=== PATIENT | female | born 1960 | race Caucasian/White ===

== ENCOUNTER → 2016-09-13 | Outpatient (CLI) | payer OTHER ==
--- NOTE | 2016-09-13 16:41 | WWHP ---
DATE OF SERVICE: 09/13/2016. CHIEF COMPLAINT: Patient is here for her routine gynecologic exam and mammogram. HPI: This is a 56-year-old, G3, P3 with an LMP of 01/24/2016. She states her periods have become very infrequent and she had 3 periods last year. She states she has not been sexually active this past year. She is having hot flashes, but are tolerable. She states certain foods including salty and spicy foods tends to bring on hot flashes. She is otherwise without complaints. PAST MEDICAL HISTORY: Fibromyalgia, elevated cholesterol and gastroesophageal reflux disease. MEDICATIONS: 1. Simvastatin 40 mg daily. 2. Vicodin 7.5 mg 1/2 tablet b.i.d. p.r.n. 3. Flexeril 10 mg p.r.n. 4. Xanax 0.25 mg p.r.n. 5. Omeprazole p.r.n. 6. Mjrh-rfz-ofcifuc supplement called/Flash fighter which she takes for menopausal symptoms daily. ALLERGIES: IBUPROFEN WHICH CAUSED PRURITUS. 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 SOCIAL HISTORY: She admits to smoking 1/2 pack of cigarettes per day, about 7 alcoholic drinks per week. She denies drug use. She has been a since 06/2015. She has been casually seeing somebody recently for dates, but has not been sexually active. She is currently not working outside the home but is considering looking for a job in the future. REVIEW OF SYSTEMS: She has gained about 12 pounds over the last year. She denies respiratory, cardiac, or GI problems. PHYSICAL EXAM: Blood pressure 123/78. Height 4 feet 11 inches, weight 130 pounds. Temperature 97.9, pulse 73. This a well-developed, well-nourished white female who is alert and oriented x3 in no acute distress. HEENT is within normal limits. NECK: Supple without mass or thyromegaly. CHEST AND LUNGS: Clear to auscultation. HEART: Regular rate and rhythm. Breasts are without mass or discharge. Axillary exam is negative for adenopathy. BACK: Negative for CVA tenderness. ABDOMEN: Soft, nontender, without palpable masses. PELVIC EXAM: Normal external genitalia. Cervix and vagina appear normal. There is no significant atrophy and no evidence of prolapse. The uterus is midposition, nongravid size and nontender. There are no palpable adnexal masses or tenderness. Rectovaginal exam is negative for mass or tenderness and is negative for occult blood. EXTREMITIES: Nontender. IMPRESSION: 1. A 56-year-old perimenopausal female with oligomenorrhea and vasomotor symptoms. 2. Normal gynecologic exam. PLAN: 1. Pap smear was deferred, since she had a normal one last year. 2. Self-breast examination was discussed. 3. Mammogram will be done today. 4. Osteoporosis prevention was discussed. 5. I have recommended screening colonoscopy since it has been about 10 years since her last one. She states she will see Dr. John for this. 6. STD prevention was discussed. I have recommended limiting sexual partners and recommended condom use if she is sexually active. 7. She will return in one year.
--- NOTE | 2016-09-14 13:21 | MM ---
Reason for exam: screening (asymptomatic). Last mammogram was performed 1 year and 2 months ago. History: Benign excisional biopsy of the right breast, August 13, 2006. Physical Findings: A clinical breast exam by your physician is recommended on an annual basis and results should be correlated with mammographic findings. MG Screening Mammo w CAD Bilateral CC and MLO view(s) were taken. Prior study comparison: July 27, 2015, bilateral MG screening mammo w CAD. November 26, 2012, CAD bilateral diagnostic mammogram. The breast tissue is extremely dense which could obscure a lesion on mammography. No significant changes when compared with prior studies. ASSESSMENT: Benign, BI-RAD 2 RECOMMENDATION: Routine screening mammogram of both breasts in 1 year.
== END | disposition home or self-care (01) ==
LOC: WWCWWP 09:03
PROVIDERS: ATTEND Obstetrics & Gynecology
DX: Z12.31 Encounter for screening mammogram for malignant neoplasm of breast (principal)

== ENCOUNTER → 2016-11-07 | Outpatient (CLI) | payer OTHER ==
--- NOTE | 2016-11-07 11:27 | CTL ---
EXAMINATION TYPE: CT Low Dose Lung DATE OF EXAM ORDERED: 11/07/2016 HISTORY: Personal history of tobacco use. Lung cancer screening CT DLP: 58.[address] CTDI: 2.1 mGy Automated exposure control for dose reduction was used. SCREENING VISIT: 1 COMPARISON: None TECHNIQUE: Low dose computed tomography scan was performed through the chest at 1 mm thick sections a nd reconstructed images in the coronal plane at [address] DIAGNOSTIC QUALITY: Satisfactory FINDINGS: LUNG NODULES: None. COPD: Severity: None Fibrosis: Severity: None Lymph nodes: No abnormal enlarged nodes Other findings: RIGHT PLEURAL SPACE: Effusion: None Calcification: None Thickening: None Pneumothorax: None LEFT PLEURAL SPACE: Effusion: None Calcification: None Thickening: None Pneumothorax: None HEART: Heart Size: Normal Coronary calcification: Present within the LAD Pericardial effusion: OTHER FINDINGS: Upper abdomen: Unremarkable Bony thorax: Within normal limits. Degenerative disc changes in the visualized spine Supraclavicular region: No evident adenopathy Other: IMPRESSION: Negative screening chest CT for pulmonary nodules. Coronary artery disease as described. FOLLOW UP CT CHEST RECOMMENDATION: [address] LUNG RAD: 1
== END | disposition home or self-care (01) ==
LOC: RADCTMAIN 09:55
PROVIDERS: ATTEND Family Medicine
DX: Z12.2 Encounter for screening for malignant neoplasm of respiratory organs (principal); I25.10 Atherosclerotic heart disease of native coronary artery without angina pectoris; F17.200 Nicotine dependence, unspecified, uncomplicated

== ENCOUNTER → 2017-11-20 | Outpatient (CLI) | payer OTHER ==
[2017-11-20 10:26] VITALS: BP 119/78; PULSE 75; TEMP 98.5; BMI 28.3
--- NOTE | 2017-11-20 11:08 | P.HPOB ---
History of Present Illness H&P Date: 11/20/17 Chief Complaint: The patient is here for her routine gynecologic exam and mammogram. This is a 57-year-old G3 PIII with an LMP of 02/2016. The patient states hot flashes have been improving. She denies any postmenopausal bleeding. She is without gynecologic complaints. Review of Systems The patient has gained 10 pounds over the last year. She denies respiratory, cardiac, or G.I. problems. 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 History of Any Multi-Drug Resistant Organisms: None Reported Past Surgical History: Breast Surgery (Benign breast lump 2006), Section (Times 3), Tubal Ligation Past Psychological History: No Psychological Hx Reported Smoking Status: Current every day smoker (Less than one pack per day) Past Alcohol Use History: Occasional Past Drug Use History: None Reported Additional History: She is retired and is a since 2015. - Past Family History Sister(s) Family Medical History: Myocardial Infarction ([place]) (At age 58) Brother(s) Family Medical History: Coronary Artery Disease (CAD) Additional Family Medical History / Comment(s): Another brother had lung cancer. Medications and Allergies Home Medications Medication Instructions Recorded Confirmed Type Hydrocodone/Acetaminophen [[place] 1 tab PO Q6HR PRN 11/20/17 11/20/17 History 7.5-325] Simvastatin [Zocor] mg PO DAILY 11/20/17 History Allergies Allergy/AdvReac Type Severity Reaction Status Date / Time No Known Allergies Allergy Unverified 11/20/17 10:28 Exam Vital Signs Temp Pulse BP 11/20/17 10:23 98.5 F 75 119/78 Intake and Output 11/19/17 11/20/17 11/20/17 22:59 06:59 14:59 Other: Weight 63.503 kg Height 4'11", BMI 28.3. This is a well-developed well-nourished white female who is alert and oriented times 3 in no acute distress. HEENT: Within normal limits. NECK: Supple without mass or thyromegaly. CHEST AND LUNGS: Clear to auscultation. HEART: Regular rate and rhythm. BREASTS: Are without mass or discharge. AXILLARY EXAM: Negative for adenopathy. BACK: Negative for CVA tenderness. ABDOMEN: Soft, nontender, without palpable masses. PELVIC EXAM: Normal external genitalia without significant atrophy. Cervix and vagina appear normal mild atrophy. The cervix is mildly stenotic secondary to atrophy. There is no unusual discharge. There is no evidence of prolapse. The uterus is midposition, nongravid size and nontender. There are no palpable adnexal masses or tenderness. RECTAL EXAM: rectovaginal exam is negative for mass or tenderness and is negative for occult blood. EXTREMITIES: Nontender. IMPRESSION: 1. 57-year-old menopausal female with normal gynecologic exam. 2. Smoker. PLAN: 1. Pap smear was performed. 2. Self breast awareness was discussed. 3. Screening mammogram will be done today. 4. Osteoporosis prevention was discussed. 5. I have recommended quitting smoking and we've discussed many reasons why this is important. She states she does have a prescription for Chantix and may restart this. 6. I have recommended screening colonoscopy since it has been about 11 years since her last one. She will try to arrange this through her primary care physician. 7. She will return in one year.
--- NOTE | 2017-11-22 08:00 | MM ---
Reason for exam: screening (asymptomatic). Last mammogram was performed 1 year and 2 months ago. History: Benign excisional biopsy of the right breast, August 13, 2006. Physical Findings: A clinical breast exam by your physician is recommended on an annual basis and results should be correlated with mammographic findings. MG Screening Mammo w CAD Bilateral CC and MLO view(s) were taken. Prior study comparison: September 13, 2016, bilateral MG screening mammo w CAD. July 27, 2015, bilateral MG screening mammo w CAD. The breast tissue is extremely dense which could obscure a lesion on mammography. Benign appearing bilateral calcifications. No suspicious abnormality. No significant changes when compared with prior studies. ASSESSMENT: Benign, BI-RAD 2 RECOMMENDATION: Routine screening mammogram of both breasts in 1 year.
== END | disposition home or self-care (01) ==
LOC: WWCWWP 09:41
PROVIDERS: ATTEND Obstetrics & Gynecology
DX: Z12.31 Encounter for screening mammogram for malignant neoplasm of breast (principal)
CPT/HCPCS: 77067

== ENCOUNTER → 2018-06-18 | Outpatient (CLI) | payer OTHER ==
--- NOTE | 2018-06-18 10:06 | MM ---
Reason for exam: clinical finding. Last mammogram was performed 7 months ago. History: Patient is postmenopausal. Benign excisional biopsy of the right breast, August 13, 2006. Took hormonal contraceptives for 10 years. Physical Findings: Nurse did not find any significant physical abnormalities on exam. MG Diagnostic Mammo RT w CAD CC and MLO view(s) were taken of the right breast. Prior study comparison: November 20, 2017, bilateral MG screening mammo w CAD. September 13, 2016, bilateral MG screening mammo w CAD. The breast tissue is extremely dense which could obscure a lesion on mammography. There are benign appearing round calcifications in the right breast. There is no discrete abnormality. These results were verbally communicated with the patient and result sheet given to the patient on 06/18/18. ASSESSMENT: Benign, BI-RAD 2 RECOMMENDATION: Return to routine screening mammogram schedule for both breasts. Back on schedule for November 2018. Manage on a clinical basis with regard to right pain.
== END ==
LOC: RADMAMWWP 08:22
PROVIDERS: ATTEND Family Medicine
DX: N63.10 Unspecified lump in the right breast, unspecified quadrant (principal); N64.4 Mastodynia
CPT/HCPCS: 77065

== ENCOUNTER → 2019-03-11 | Outpatient (CLI) | payer OTHER ==
[2019-03-11 16:09] VITALS: BP 124/76; PULSE 91; RESP 18; TEMP 97.9; BMI 27.2
--- NOTE | 2019-03-11 16:56 | P.HPOB ---
History of Present Illness H&P Date: 03/11/19 Chief Complaint: The patient is here for her routine gynecologic exam and ma mmogram. This is a 59-year-old with an LMP of 2016. The patient is without gynecologic complaints and denies any postmenopausal bleeding. Review of Systems The patient has lost 5 pounds over the last year. She denies respiratory, cardiac, or G.I. problems. 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 History of Any Multi-Drug Resistant Organisms: None Reported Past Surgical History: Breast Surgery, Section, Tubal Ligation Additional Past Surgical History / Comment(s): Breast biopsies. 3 Past Psychological History: No Psychological Hx Reported Smoking Status: Current every day smoker (One pack per day) Past Alcohol Use History: Occasional (6 per week) Past Drug Use History: None Reported Additional History: She has been a since 2016 and currently is not sexually active. She is currently not working outside the home but may be looking for part-time work. - Past Family History Sister(s) Family Medical History: Myocardial Infarction ([place]) Brother(s) Family Medical History: Coronary Artery Disease (CAD) Additional Family Medical History / Comment(s): Another brother had lung cancer. Medications and Allergies Home Medications Medication Instructions Recorded Confirmed Type Hydrocodone/Acetaminophen [[place] 1 tab PO Q6HR PRN 11/20/17 03/11/19 History 7.5-325] Simvastatin [Zocor] 40 mg PO DAILY 11/20/17 03/11/19 History Cyclobenzaprine [Flexeril] 10 mg PO HS 03/11/19 03/11/19 History Allergies Allergy/AdvReac Type Severity Reaction Status Date / Time No Known Allergies Allergy Unverified 03/11/19 16:04 Exam Vital Signs Temp Pulse Resp BP Pulse Ox 03/11/19 16:06 97.9 F 91 18 124/76 94 L Intake and Output 03/11/19 03/11/19 03/11/19 06:59 14:59 22:59 Other: Weight 61.235 kg Height 4 feet 11 inches, weight 135 pounds, BMI 27.3. This is a well-developed well-nourished white female who is alert and oriented times 3 in no acute distress. HEENT: Within normal limits. NECK: Supple without mass or thyromegaly. CHEST AND LUNGS: Clear to auscultation. HEART: Regular rate and rhythm. BREASTS: Are without mass or discharge. AXILLARY EXAM: Negative for adenopathy. BACK: Negative for CVA tenderness. ABDOMEN: Soft, nontender, without palpable masses. PELVIC EXAM: Normal external genitalia with minimal atrophy. Cervix and vagina appear normal is minimal atrophy. There is no unusual discharge. There is no evidence of prolapse. The uterus is midposition, nongravid size and nontender. There are no palpable adnexal masses or tenderness. RECTAL EXAM: Rectovaginal exam is negative for mass or tenderness and is negative for occult blood. EXTREMITIES: Nontender. IMPRESSION: 1. 59-year-old menopausal female with normal gynecologic exam. PLAN: 1. Pap smear was deferred since she had a normal one on 11/20/2017. 2. Self breast awareness was discussed with the patient. 3. Screening mammogram will be done today. 4. Osteoporosis prevention was discussed. I have stressed the importance of adequate calcium, vitamin D and regular exercise. Recommended amounts of calcium and vitamin D were also discussed. 5. I have recommended screening colonoscopy since her last one was about 12 years ago. She will talk with Dr. Barry and have this arranged through his office. 6. I have recommended that she try to cut back on smoking as much as possible and try to quit. 7. She was advised to return in one year for her annual well woman exam.
--- NOTE | 2019-03-13 10:59 | MM ---
Reason for exam: screening (asymptomatic). Last mammogram was performed 9 months ago. History: Patient is postmenopausal. Benign excisional biopsy of the right breast, August 13, 2006. Took hormonal contraceptives for 10 years. Physical Findings: A clinical breast exam by your physician is recommended on an annual basis and results should be correlated with mammographic findings. MG Screening Mammo w CAD Bilateral CC and MLO view(s) were taken. Prior study comparison: June 18, 2018, right breast MG diagnostic mammo RT w CAD. November 20, 2017, bilateral MG screening mammo w CAD. The breast tissue is extremely dense which could obscure a lesion on mammography. No significant changes when compared with prior studies. ASSESSMENT: Benign, BI-RAD 2 RECOMMENDATION: Routine screening mammogram of both breasts in 1 year.
== END | disposition home or self-care (01) ==
LOC: WWCWWP 15:50
PROVIDERS: ATTEND Obstetrics & Gynecology
DX: Z12.31 Encounter for screening mammogram for malignant neoplasm of breast (principal)
CPT/HCPCS: 77067

== ENCOUNTER → 2020-06-15 | Outpatient (CLI) | payer OTHER ==
[2020-06-15 11:04] VITALS: BP 144/83; PULSE 83; RESP 18; TEMP 98.5
--- NOTE | 2020-06-15 11:45 | P.HPOB ---
History of Present Illness H&P Date: 06/15/20 Chief Complaint: The patient is here for her routine gynecologic exam and ma mmogram. This is a 60-year-old with an LMP of 2016. The patient is without gynecologic complaints. Review of Systems The patient has gained 7 pounds over the last year. She denies respiratory, cardiac, or G.I. problems. 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 History of Any Multi-Drug Resistant Organisms: None Reported Past Surgical History: Breast Surgery, Section, Tubal Ligation Additional Past Surgical History / Comment(s): Breast biopsies. 3. Colonoscopy 2011. Past Psychological History: No Psychological Hx Reported Smoking Status: Current every day smoker (About a half a pack per day) Past Alcohol Use History: Occasional (3-5 per week.) Past Drug Use History: None Reported Additional History: She has been a since 2015 and is currently not working outside of the home. - Past Family History Sister(s) Family Medical History: Myocardial Infarction ([place]) Brother(s) Family Medical History: Cancer, Coronary Artery Disease (CAD) Additional Family Medical History / Comment(s): Another brother had lung cancer. Medications and Allergies Home Medications Medication Instructions Recorded Confirmed Type Hydrocodone/Acetaminophen [[place] 1 tab PO Q6HR PRN 11/20/17 06/15/20 History 7.5-325] Simvastatin [Zocor] 40 mg PO DAILY 11/20/17 06/15/20 History Cyclobenzaprine [Flexeril] 10 mg PO HS 03/11/19 06/15/20 History ALPRAZolam [Xanax] 0.5 mg PO DAILY PRN 06/15/20 06/15/20 History Allergies Allergy/AdvReac Type Severity Reaction Status Date / Time shellfish derived [Shellfish] Allergy Swelling Unverified 06/15/20 10:56 Exam Vital Signs Temp Pulse Resp BP Pulse Ox 06/15/20 10:57 98.5 F 83 18 144/83 98 Intake and Output 06/14/20 06/15/20 06/15/20 22:59 06:59 14:59 Other: Weight 64.41 kg Height 4 feet 9 inches, weight 142 pounds, BMI 30.7. This is a well-developed well-nourished short statured white female who is alert and oriented times 3 in no acute distress. HEENT: Within normal limits. NECK: Supple without mass or thyromegaly. CHEST AND LUNGS: Clear to auscultation. HEART: Regular rate and rhythm. BREASTS: Are without mass or discharge. AXILLARY EXAM: Negative for adenopathy. BACK: Negative for CVA tenderness. ABDOMEN: Soft, nontender, without palpable masses. PELVIC EXAM: Normal external genitalia with mild atrophy. Cervix and vagina appear normal mild atrophy. There is no unusual discharge. There is no evidence of prolapse. The uterus is midposition, nongravid size and nontender. There a re no palpable adnexal masses or tenderness. RECTAL EXAM: Rectovaginal exam is negative for mass or tenderness and is negative for occult blood. EXTREMITIES: Nontender. IMPRESSION: 1. 60-year-old menopausal female with normal gynecologic exam. 2. Mildly elevated blood pressure PLAN: 1. Pap smear cotest was performed. 2. Self breast awareness was discussed with the patient. 3. Screening mammogram will be done today. 4. She states she had an abnormal Cologuard test and she is scheduled for a colonoscopy on 06/23/2020. 5. We have discussed lung cancer screening with low-dose CT scan. Because of her family history of lung cancer and her history of smoking, I have recommended that she speak with her PCP regarding lung cancer screening. 6.Osteoporosis prevention was discussed. I have stressed the importance of adequate calcium, vitamin D and regular exercise. Recommended amounts of calcium and vitamin D were also discussed. I have recommended bone density screening and the order slip for this was given to the patient. 7. We have discussed her blood pressure. I have recommended that she check her blood pressure on a regular basis since she has a blood pressure cuff. She is to follow up with her PCP for blood pressure elevations. 8. She was advised to return in one year for her annual well woman exam.
--- NOTE | 2020-06-16 09:46 | MM ---
Reason for exam: screening (asymptomatic). Last mammogram was performed 1 year and 3 months ago. History: Patient is postmenopausal. Benign excisional biopsy of the right breast, August 13, 2006. Took hormonal contraceptives for 10 years. Physical Findings: A clinical breast exam by your physician is recommended on an annual basis and results should be correlated with mammographic findings. MG Screening Mammo w CAD Bilateral CC and MLO view(s) were taken. Prior study comparison: March 11, 2019, bilateral MG screening mammo w CAD. June 18, 2018, right breast MG diagnostic mammo RT w CAD. The breast tissue is heterogeneously dense. This may lower the sensitivity of mammography. There are benign appearing round calcifications bilaterally. There is no discrete abnormality. ASSESSMENT: Benign, BI-RAD 2 RECOMMENDATION: Routine screening mammogram of both breasts in 1 year.
== END | disposition home or self-care (01) ==
LOC: WWCWWP 10:49
PROVIDERS: ATTEND Obstetrics & Gynecology
DX: Z12.31 Encounter for screening mammogram for malignant neoplasm of breast (principal)
CPT/HCPCS: 77067

== ENCOUNTER → 2020-07-02 | Outpatient (CLI) | payer OTHER ==
--- NOTE | 2020-07-02 16:00 | BD ---
EXAMINATION TYPE: Axial Bone Density DATE OF EXAM: 07/02/2020 COMPARISON: NONE CLINICAL HISTORY: Height: 57 IN Weight: 141 LBS FRAX RISK QUESTIONS: Current Tobacco Use: YES RISK FACTORS HISTORY OF: Active: YES Postmenopausal woman: AGE 55 MEDICATIONS: Additional Medications: NORCO, SIMVASTATIN EXAM MEASUREMENTS: Bone mineral densitometry was performed using the [employer] System. Bone mineral density as measured about the Lumbar spine is: ----- L1-L4(G/cm2): 1.289 T Score Values are as follows: ----- L2: -0.1 ----- L3: 1.7 ----- L4: 2.8 ----- L1-L4: 0.9 Bone mineral density BASELINE Bone mineral density about the R hip (g/cm2): 0.943 Bone mineral density about the L hip (g/cm2): 0.952 T Score values are as follows: -----R Neck: -0.7 -----L Neck: -0.6 -----R Total: 0.8 -----L Total: 0.9 Bone mineral density BASELINE IMPRESSION: No evidence for osteoporosis or osteopenia NOTE: T-SCORE=SD OF THE YOUNG ADULT MEAN.
== END | disposition home or self-care (01) ==
LOC: RADBDWWP 13:17
PROVIDERS: ATTEND Obstetrics & Gynecology
DX: Z78.0 Asymptomatic menopausal state (principal)
CPT/HCPCS: 77080

== ENCOUNTER → 2021-09-20 | Outpatient (CLI) | payer OTHER ==
[2021-09-20 10:50] VITALS: BP 144/79; PULSE 79; RESP 16; TEMP 98.3
--- NOTE | 2021-09-20 11:47 | P.HPOB ---
History of Present Illness H&P Date: 09/20/21 Chief Complaint: The patient is here for her routine gynecologic exam and ma mmogram. This is a 61-year-old with an LMP of 2016. The patient is without gynecologic complaints. Review of Systems The patient's weight has been stable over the last year. She denies respiratory, cardiac, or G.I. problems. 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 History of Any Multi-Drug Resistant Organisms: None Reported Past Surgical History: Breast Surgery, Section, Tubal Ligation Additional Past Surgical History / Comment(s): Breast biopsies. 3. Colonoscopy 2020(next after 10y). Past Psychological History: No Psychological Hx Reported Smoking Status: Current every day smoker (Half pack per day) Past Alcohol Use History: Occasional (4-5 per week) Past Drug Use History: None Reported Additional History: She is a . She does have a male critical care technician, but they are not sexually active. She does not work outside of the home. - Past Family History Sister(s) Family Medical History: Myocardial Infarction ([place]) Brother(s) Family Medical History: Cancer, Coronary Artery Disease (CAD) Additional Family Medical History / Comment(s): Another brother had lung cancer. Medications and Allergies Home Medications Medication Instructions Recorded Confirmed Type Hydrocodone/Acetaminophen [[place] 1 tab PO Q6HR PRN 11/20/17 09/20/21 History 7.5-325] Cyclobenzaprine [Flexeril] 10 mg PO HS 03/11/19 09/20/21 History ALPRAZolam [Xanax] 0.5 mg PO DAILY PRN 06/15/20 09/20/21 History Atorvastatin [Lipitor] 40 mg PO DAILY 09/20/21 09/20/21 History Allergies Allergy/AdvReac Type Severity Reaction Status Date / Time shellfish derived [Shellfish] Allergy Swelling Verified 09/20/21 10:43 Exam Vital Signs Temp Pulse Resp BP Pulse Ox 09/20/21 10:45 98.3 F 79 16 144/79 97 Intake and Output 09/19/21 09/20/21 09/20/21 22:59 06:59 14:59 Other: Weight 65.317 kg Height 4 feet 10 inches, weight 144 pounds, BMI 30.1. This is a well-developed well-nourished white female who is alert and oriented times 3 in no acute distress. HEENT: Within normal limits. NECK: Supple without mass or thyromegaly. CHEST AND LUNGS: Clear to auscultation. HEART: Regular rate and rhythm. BREASTS: Are without mass or discharge. AXILLARY EXAM: Negative for adenopathy. BACK: Negative for CVA tenderness. ABDOMEN: Soft, nontender, without palpable masses. PELVIC EXAM: Normal external genitalia with mild atrophy. Cervix and vagina appear normal mild atrophy. There is no unusual discharge. There is no evidence of prolapse. The uterus is midposition, nongravid size and nontender. There are no palpable adnexal masses or tenderness. RECTAL EXAM: Rectovaginal exam is negative for mass or tenderness and is negative for occult blood. EXTREMITIES: Nontender. IMPRESSION: 1. 61-year-old menopausal female with normal gynecologic exam. PLAN: 1. Pap smear was deferred since she had a negative Pap smear cotest on 06/15/2020. 2. Self breast awareness was discussed with the patient. We have also discussed symptoms associated with inflammatory breast cancer. 3. Screening mammogram will be done today. 4. Osteoporosis prevention was discussed. I have stressed the importance of adequate calcium, vitamin D and regular exercise. Recommended amounts of calcium and vitamin D were also discussed. She had a normal bone density test done on 07/02/2020. We will repeat this after proximally 5 years. 5. She has received a Covid vaccination and a booster. 6. She was advised to return in one year for her annual well woman exam.
--- NOTE | 2021-09-21 10:37 | MM ---
Reason for exam: screening (asymptomatic). Last mammogram was performed 1 year and 3 months ago. History: Patient is postmenopausal. Benign excisional biopsy of the right breast, August 13, 2006. Took hormonal contraceptives for 10 years. Physical Findings: A clinical breast exam by your physician is recommended on an annual basis and results should be correlated with mammographic findings. MG 3D Screening Mammo W/Cad Bilateral CC and MLO view(s) were taken. Prior study comparison: June 15, 2020, bilateral MG screening mammo w CAD. March 11, 2019, bilateral MG screening mammo w CAD. The breast tissue is extremely dense which could obscure a lesion on mammography. Stable benign calcifications. Focal asymmetry inner upper left breast 6.8cm from nipple. This finding is changed when compared with previous exams. ASSESSMENT: Incomplete: need additional imaging evaluation, BI-RAD 0 RECOMMENDATION: Special view mammogram of the left breast. If lesion persists on supplemental views, image directed ultrasound is recommended. [facility] will attempt to contact patient to return for supplemental views and ultrasound if indicated.
== END ==
LOC: WWCWWP 10:33
PROVIDERS: ATTEND Obstetrics & Gynecology
DX: Z12.31 Encounter for screening mammogram for malignant neoplasm of breast (principal); Z01.419 Encounter for gynecological examination (general) (routine) without abnormal findings; E78.5 Hyperlipidemia, unspecified; F17.210 Nicotine dependence, cigarettes, uncomplicated; Z91.013 Allergy to seafood; Z80.1 Family history of malignant neoplasm of trachea, bronchus and lung
CPT/HCPCS: 77063; 77067

== ENCOUNTER → 2021-09-22 | Outpatient (CLI) | payer OTHER ==
--- NOTE | 2021-09-22 14:12 | MM ---
Reason for exam: additional evaluation requested from abnormal screening. Last mammogram was performed less than 1 month ago. History: Patient is postmenopausal. Benign excisional biopsy of the right breast, August 13, 2006. Took hormonal contraceptives for 10 years. Physical Findings: A clinical breast exam by your physician is recommended on an annual basis and results should be correlated with mammographic findings. MG 3D Work Up W/Cad LT Spot compression CC, spot compression MLO, and LM view(s) were taken of the left breast. Prior study comparison: September 20, 2021, bilateral MG 3d screening mammo w/cad. June 15, 2020, bilateral MG screening mammo w CAD. The breast tissue is extremely dense which could obscure a lesion on mammography. No distinct lesion persists on additional views. Results were given to the patient verbally at the time of the exam. ASSESSMENT: Negative, BI-RAD 1 RECOMMENDATION: Return to routine screening mammogram schedule for both breasts.
== END | disposition home or self-care (01) ==
LOC: RADMAMWWP 13:34
PROVIDERS: ATTEND Obstetrics & Gynecology
DX: R92.8 Other abnormal and inconclusive findings on diagnostic imaging of breast (principal); Z78.0 Asymptomatic menopausal state
CPT/HCPCS: 77065; G0279; 77061

== ENCOUNTER → 2022-11-14 | Outpatient (CLI) | payer OTHER ==
[2022-11-14 15:26] VITALS: BP 161/90; PULSE 78; RESP 16; TEMP 97.7
--- NOTE | 2022-11-14 16:12 | P.HPOB ---
History of Present Illness H&P Date: 11/14/22 Chief Complaint: The patient is here for her routine gynecologic exam and ma mmogram. This is a 62-year-old with an LMP of 2016. The patient is without gynecologic complaints and denies any postmenopausal bleeding. Review of Systems The patient's weight has been stable over the last year. She denies respiratory, cardiac, or G.I. problems. 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 History of Any Multi-Drug Resistant Organisms: None Reported Past Surgical History: Breast Surgery, Section, Tubal Ligation Additional Past Surgical History / Comment(s): Breast biopsies. 3. Colonoscopy 2020(next after 10y). Past Psychological History: No Psychological Hx Reported Smoking Status: Current every day smoker (Less than half a pack of cigarettes per day.) Past Alcohol Use History: Occasional (3 per week.) Past Drug Use History: None Reported Additional History: She is a . She is currently not seeing any fatty at this time and has not been sexually active. She does not work outside of the home. - Past Family History Sister(s) Family Medical History: Myocardial Infarction ([place]) Brother(s) Family Medical History: Cancer, Coronary Artery Disease (CAD) Additional Family Medical History / Comment(s): Another brother had lung cancer. Medications and Allergies Home Medications Medication Instructions Recorded Confirmed Type Hydrocodone/Acetaminophen [[place] 1 tab PO Q6HR PRN 11/20/17 11/14/22 History 7.5-325] Cyclobenzaprine [Flexeril] 10 mg PO HS 03/11/19 11/14/22 History ALPRAZolam [Xanax] 0.5 mg PO DAILY PRN 06/15/20 11/14/22 History Atorvastatin [Lipitor] 40 mg PO DAILY 09/20/21 11/14/22 History Allergies Allergy/AdvReac Type Severity Reaction Status Date / Time shellfish derived [Shellfish] Allergy Swelling Verified 11/14/22 15:23 Exam Vital Signs Temp Pulse Resp BP Pulse Ox 11/14/22 15:24 97.7 F 78 16 161/90 97 Intake and Output 11/14/22 11/14/22 11/14/22 06:59 14:59 22:59 Other: Weight 65.317 kg Height 4 feet 9 inches, weight 144 pounds, BMI 31.2. This is a well-developed well-nourished short statured white female who is alert and oriented times 3 in no acute distress. HEENT: Within normal limits. NECK: Supple without mass or thyromegaly. CHEST AND LUNGS: Clear to auscultation. HEART: Regular rate and rhythm. BREASTS: Are without mass or discharge. AXILLARY EXAM: Negative for adenopathy. BACK: Negative for CVA tenderness. ABDOMEN: Soft, nontender, without palpable masses. PELVIC EXAM: Normal external genitalia with mild atrophy. Cervix and vagina appear normal with mild atrophy. There is no unusual discharge. There is no evidence of prolapse. The uterus is midposition, nongravid size and nontender. There are no palpable adnexal masses or tenderness. RECTAL EXAM: Rectovaginal exam is negative for mass or tenderness and is negative for occult blood. EXTREMITIES: Nontender. IMPRESSION: 1. 62-year-old menopausal female with normal gynecologic exam. 2. Elevated blood pressure. PLAN: 1. Pap smear was deferred since she had a negative Pap smear cotest on 06/15/2020. 2. Self breast awareness was discussed with the patient. We have also discussed symptoms associated with inflammatory breast cancer. 3. Screening mammogram will be done today. 4. She had a normal bone density test on 07/02/2020 we'll plan on repeating this about 5 years after her last one. 5. We have discussed her elevated blood pressure. I recommended that she check her own blood pressure on a regular basis at home since she does have a blood pressure cuff. She will follow up with her PCP for blood pressure elevations. 6. I recommended that she try to quit smoking. We've discussed many reasons why this is important. She has been talking to her PCP about possibly using a medication to help her to quit. 7. Weight control was discussed. I have stressed importance of good nutrition, regular meals, adequate fiber, and regular exercise. 8. She was advised to return in one year for her annual well woman exam.
--- NOTE | 2022-11-15 08:43 | MM ---
Reason for Exam: Screening (asymptomatic). Last mammogram was performed 1 year(s) and 1 month(s) ago. Patient History: Menarche at age 14. First Full-Term at age 18. Postmenopausal. Patient used Hormonal Contraceptives for 10 years. 08/13/2006, Benign Excisional Biopsy on the right side. Risk Values: Geovanna 5 year model risk: 1.0%. NCI Lifetime model risk: 4.6%. Prior Study Comparison: 06/15/2020 Bilateral Screening Mammogram, [facility]. 09/20/2021 Bilateral Screening Mammogram, [facility]. 09/22/2021 Left Diagnostic Mammogram, [facility]. Tissue Density: The breast tissue is extremely dense which could obscure a lesion on mammography. Findings: Analyzed By CAD. There is no suspicious group of microcalcifications or new suspicious mass in either breast. Overall Assessment: Negative, BI-RAD 1 Management: Screening Mammogram of both breasts in [address] [facility] will attempt to contact patient to return for supplemental views and ultrasound if indicated. Patient should continue monthly self-breast exams. A clinical breast exam by your physician is recommended on an annual basis. This exam should not preclude additional follow-up of suspicious palpable abnormalities. Note on Geovanna scores and lifetime risk: 1. A Geovanna score greater than 3% is considered moderate risk. If this is the case, consider specialist referral to assess eligibility for a risk reducing agent. 2. If overall lifetime risk for the development of breast cancer is 20% or higher, the patient may qualify for future screening with alternating mammogram and breast MRI. Electronically signed and approved by: Emanuel Ross DO
== END ==
LOC: WWCWWP 15:13
PROVIDERS: ATTEND Obstetrics & Gynecology
DX: N95.1 Menopausal and female climacteric states (principal); R03.0 Elevated blood-pressure reading, without diagnosis of hypertension; K21.9 Gastro-esophageal reflux disease without esophagitis; E78.5 Hyperlipidemia, unspecified; M79.7 Fibromyalgia; F17.210 Nicotine dependence, cigarettes, uncomplicated; Z91.013 Allergy to seafood
CPT/HCPCS: 77063; 77067

== ENCOUNTER → 2023-03-30 | Outpatient (CLI) | payer OTHER ==
--- NOTE | 2023-03-30 12:40 | CT ---
EXAMINATION TYPE: CT abdomen pelvis wo con DATE OF EXAM: 03/30/2023 COMPARISON: 06/05/2013 HISTORY: 63-year-old female M54.9, flank pain and issues with urinating. Rule out kidney stone. CT DLP: 849 mGycm. Automated exposure control for dose reduction was used. TECHNIQUE: Contiguous axial scanning of the abdomen and pelvis without IV contrast. Coronal and sagit francisco javier reconstructions performed. FINDINGS: Heart is normal size without pericardial effusion. LAD coronary artery calcifications are present. So me strandy atelectasis at the left base. No pleural effusion. Noncontrast appearance of the liver, gallbladder, adrenal glands, bilateral kidneys, spleen, and panc reas show no gross abnormality. No dilated small bowel., Free fluid, or free air. No mesenteric or retroperitoneal lymphadenopathy. Normal appendix. Mild to moderate stool burden. Left-sided colonic diverticulosis. No pericolic infla mmatory change. Bladder partially distended. Uterus anteverted. Both ovaries are visualized. No abnormal fluid collec tion in the pelvis or pelvic lymphadenopathy. Bones: Hypertrophic facet arthropathy mid to lower lumbar spine. Scattered mild degenerative disc dis ease, more moderate at T11-T12. IMPRESSION: 1. No nephrolithiasis or hydronephrosis. 2. Mild scattered left-sided colonic diverticulosis without acute diverticulitis.
== END | disposition home or self-care (01) ==
LOC: RADCTMAIN 10:03
PROVIDERS: ATTEND Family Medicine
DX: K57.30 Diverticulosis of large intestine without perforation or abscess without bleeding (principal); M54.9 Dorsalgia, unspecified; R39.198 Other difficulties with micturition
CPT/HCPCS: 74176

== ENCOUNTER → 2023-07-09 | Outpatient (CLI) | payer OTHER ==
--- NOTE | 2023-07-09 10:22 | CT ---
EXAMINATION TYPE: CT abdomen pelvis wo con CT DLP: 867 mGycm, Automated exposure control for dose reduction was used. DATE OF EXAM: 07/09/2023 10:07 AM COMPARISON: CT abdomen pelvis most recent from 03/30/2023 CLINICAL INDICATION:Female, 63 years old with history of M54.9 costo vetebral angle tenderness; hemat uria , flank pain TECHNIQUE: Axial CT abdomen pelvis wo con;Sagittal and coronal reformats were created on a separate workstation. Contrast used: mL of , (none if empty) Oral contrast used: without Oral Contrast (none if empty) FINDINGS: LOWER CHEST: Mild atherosclerosis of the coronary arteries. ABDOMEN LIVER: Unremarkable GALLBLADDER AND BILE DUCTS: Unremarkable. PANCREAS: Unremarkable. SPLEEN: Unremarkable. ADRENAL GLANDS: Unremarkable. KIDNEYS AND URETERS: No evidence of hydronephrosis or renal calculus. The ureters are unremarkable. PELVIS BLADDER: Unremarkable REPRODUCTIVE: Unremarkable. ABDOMEN & PELVIS STOMACH AND BOWEL: No evidence of bowel obstruction. Scattered colonic diverticula are present. The a ppendix demonstrates feces no significant fat stranding changes. PERITONEUM/RETROPERITONEUM: No evidence of pneumoperitoneum or free fluid. VASCULATURE: Mild atherosclerotic calcifications are present throughout the abdominal aorta and its b ranches. No evidence of aortic aneurysm. MUSCULOSKELETAL: No acute osseous abnormalities. Mild disc degeneration changes are present throughou t the thoracolumbar spine. LYMPH NODES: No gross evidence for lymphadenopathy. SOFT TISSUE/ABDOMINAL WALL: Unremarkable IMPRESSION: 1. No evidence for obstructive uropathy or renal calculus. 2. Few scattered colonic diverticula no evidence for diverticulitis.
== END | disposition home or self-care (01) ==
LOC: RADCTMAIN 09:46
PROVIDERS: ATTEND Family Medicine
DX: K57.30 Diverticulosis of large intestine without perforation or abscess without bleeding (principal); M54.9 Dorsalgia, unspecified; R31.9 Hematuria, unspecified
CPT/HCPCS: 74176

== ENCOUNTER 2023-12-24 16:58 | Emergency (ER) | payer OTHER ==
[2023-12-24] MEDS ORDERED: diphenhydrAMINE 25 MG CAP ONE (18:41)
[2023-12-24] MEDS ORDERED: FAMOTIDINE 20 MG TAB ONE (18:41)
[2023-12-24] MEDS ORDERED: predniSONE 20 MG TAB ONE (18:42)
== END 2023-12-24 20:50 ==
LOC: EC 16:58
DX: T63.441A Toxic effect of venom of bees, accidental (unintentional), initial encounter (principal); R06.89 Other abnormalities of breathing; R00.0 Tachycardia, unspecified; R00.1 Bradycardia, unspecified; Z91.013 Allergy to seafood; Z91.041 Radiographic dye allergy status
CPT/HCPCS: 93005; 99284; J7512

== ENCOUNTER 2024-01-17 08:00 | Day surgery (SDC) | payer OTHER ==
[~2024-01-17 08:00] MED LIST: HEPARIN SODIUM,PORCINE (1 ML) 2,500 UNIT in SODIUM CHLORIDE 0.9% 250 ML IRRIGATION PRN; HEPARIN SODIUM,PORCINE 10,000 UNIT in SODIUM CHLORIDE 0.9% 1,000 ML IRRIGATION PRN
[2024-01-17] MEDS ORDERED: ALPRAZolam 0.25 MG TAB PO PRN (08:07)
[2024-01-17] MEDS ORDERED: ATORVASTATIN 80 MG TAB PO STA (08:07)
[2024-01-17] MEDS ORDERED: ALPRAZolam 0.5 MG TAB PO PRN (08:07)
[2024-01-17] MEDS ORDERED: NITROGLYCERIN SL TABS 0.4 MG TAB SUBLINGUAL PRN (08:07)
[2024-01-17] MEDS ORDERED: ASPIRIN 325 MG TAB PO STA (08:07)
[2024-01-17] MEDS ORDERED: SODIUM CHLORIDE 0.9% 1,000 ML in EMPTY BAG 1 BAG IV SCH ×2 (08:11→08:15)
[2024-01-17] MEDS: ASPIRIN 81 MG PO STA (08:19)
[2024-01-17] MEDS: IV FLUID CONTINUATION 1,000 ML IV ONE (08:20)
[2024-01-17] MEDS: SODIUM CHLORIDE 0.9% 1,000 ML IV SCH (08:20)
[2024-01-17 08:38] VITALS: RESP 16; TEMP 97
[2024-01-17 08:38] LABS: Basophils % (A) 1 %; Eosinophils # (A) 0.1 k/uL (0-0.7); Eosinophils % (A) 3 %; HCT 45.4 % (34.0-46.0); HGB 14.6 gm/dL (11.4-16.0); Lymphocytes # (A) 1.1 k/uL (1.0-4.8); Lymphocytes % (A) 24 %; MCHC 32.2 g/dL (31.0-37.0); MCV 90.1 fL (80.0-100.0); Mean Platelet Volume 7.2; Monocytes # (A) 0.3 k/uL (0-1.0); Monocytes % (A) 6 %; Neutrophils # (A) 3.1 k/uL (1.3-7.7); Neutrophils % (A) 65 %; Platelet Count 214 k/uL (150-450); RBC 5.04 m/uL (3.80-5.40); RDW 12.6 % (11.5-15.5); WBC 4.8 k/uL (3.8-10.6)
[2024-01-17 08:48] LABS: African American GFR (CKD) >90 (>60 ml/min/1.73 sqM); Anion Gap 5 mmol/L; Blood Urea Nitrogen 15 mg/dL (7-17); Calcium 9.7 mg/dL (8.4-10.2); Carbon Dioxide 24 mmol/L (22-30); Chloride 108 mmol/L (98-107); Glucose 101 mg/dL (74-99); Non-African American GFR(CKD) >90 (>60 ml/min/1.73 sqM); Sodium 137 mmol/L (137-145)
[2024-01-17] MEDS ORDERED: LIDOCAINE 1% INJ 10MG/ML (20 ML MDV) ONE (09:05)
[2024-01-17] MEDS ORDERED: VERAPAMIL 2.5 MG/ML 2 ML AMP ONE (09:05)
[2024-01-17] MEDS ORDERED: fentaNYL (PF) 50 MCG/ML 2 ML AMP ONE (09:15)
[2024-01-17] MEDS ORDERED: HEPARIN SODIUM 1,000 UN/ML (10ML VL) ONE (09:16)
[2024-01-17] MEDS: MIDAZOLAM 2 MG/2 ML VIAL IVP ONE (09:43)
[2024-01-17] MEDS: fentaNYL (PF) 50 MCG/ML 2 ML AMP IVP ONE (09:45)
[2024-01-17] MEDS: LIDOCAINE 1% INJ 10MG/ML (5 ML VIAL-PF) SQ ONE (09:45)
[2024-01-17] MEDS: VERAPAMIL 2.5 MG/ML 2 ML AMP INTRAARTER ONE (09:46)
[2024-01-17] MEDS: IOPAMIDOL-370 100ML BTL IVP ONE (10:00)
[2024-01-17 12:59] VITALS: BP 137/68; PULSE 58
--- NOTE | 2024-01-17 13:23 | P.CARDCATH ---
Description of Procedure: PROCEDURES PERFORMED: Left heart catheterization, bilateral coronary angiography, ultrasound guided arterial access INDICATION: abnormal CTA CONSENT:I have discussed the risks, benefits and alternative therapies for the above-mentioned procedure and for both sedation/analgesia as well as necessary blood product administration, if indicated, as they pertain to this patient. The patient has indicated understanding and acceptance of the risks and procedures discussed. PROCEDURE: After the risks, benefits and alternatives of the above mentioned procedure explained in detail with the patient, informed consent was obtained. Patient was taken to the catheterization lab and prepped and draped in usual fashion. Ultrasound guidance was used to assess for arterial access. 1% lidocaine was used to anesthetize the right radial artery. A 6-Faroese sheath was placed in the right radial artery using modified Seldinger technique and ultrasound guidance. Left coronary angiography was performed with a 5-Faroese JL 3.5 catheter and right coronary angiography was performed with a 5-Faroese FR5 catheter in various views. A 5-Faroese FR5 catheter was inserted into the left ventricle and pressure measurements were obtained. The right radial sheath was removed and a TR band was placed with hemostasis achieved. The patient tolerated the procedure well. Patient was transported back to the post catheterization holding area in stable condition. Conscious Sedation: Patient was monitored under the direct supervision of myself for conscious sedation using Versed and fentanyl for a total duration of 10 minutes HEMODYNAMICS: aorta: 144/72 LV: 141/5, LVEDP 15 SELECTIVE CORONARY ARTERIOGRAPHY: LEFT MAIN: The left main is a large caliber vessel which bifurcates into the LAD and circumflex. There is no significant stenosis. LEFT ANTERIOR DESCENDING CORONARY ARTERY: LAD is a large caliber vessel which wraps around to the apex. There is a proximal LAD 20% stenosis and a mid LAD 30% stenosis. LEFT CIRCUMFLEX CORONARY ARTERY: Left circumflex is a moderate caliber vessel without significant stenosis. RIGHT CORONARY ARTERY: The right coronary artery is a large caliber vessel which gives off a PDA and PLV branch and is codominant vessel. There R mild luminal irregularities. FINAL IMPRESSION: 1. CAD as described above including 20% proximal LAD and mid LAD 30% stenosis 2. Normal left sided filling pressures PLAN: 1. Aggressive risk factor modification per most recent ACC/AHA guidelines. 2. Follow-up in the office in 1-2 weeks.
== END 2024-01-17 13:41 | disposition home or self-care (01) ==
LOC: CATHCVL 08:00
PROVIDERS: ATTEND Internal Medicine
DX: I25.10 Atherosclerotic heart disease of native coronary artery without angina pectoris
CPT/HCPCS: 80048; 85025; 93458

== ENCOUNTER → 2024-03-18 | Outpatient (CLI) | payer OTHER ==
[2024-03-18 09:24] VITALS: BP 144/84; PULSE 75; RESP 16; TEMP 98.5
--- NOTE | 2024-03-18 10:04 | P.HPOB ---
History of Present Illness H&P Date: 03/18/24 Chief Complaint: The patient is here for her routine gynecologic exam and ma mmogram. This is a 64-year-old G3, P3 with an LMP of 2016. The patient is without gynecologic complaints and denies any postmenopausal bleeding. Review of Systems The patient has lost 7 pounds over the last year. She has been trying to lose weight. She denies respiratory, cardiac, or G.I. problems. Past Medical History Past Medical History: Coronary Artery Disease (CAD) (40% blockage in 1 artery.), Fibromyalgia, GERD/Reflux, Hyperlipidemia Additional Past Medical History / Comment(s): Precancerous skin on face removed. 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 History of Any Multi-Drug Resistant Organisms: None Reported Past Surgical History: Breast Surgery, Section, Tubal Ligation Additional Past Surgical History / Comment(s): Breast biopsies. 3. Colonoscopy 2020(next after 10y). Past Psychological History: No Psychological Hx Reported Smoking Status: Current every day smoker (About a half a pack of cigarettes per day.) Past Alcohol Use History: Occasional (2/week) Past Drug Use History: None Reported Additional History: She is a . She has a boyfriend but is not sexually active. Do not live together. She is retired. - Past Family History Sister(s) Family Medical History: Myocardial Infarction ([place]) Brother(s) Family Medical History: Cancer, Coronary Artery Disease (CAD) Additional Family Medical History / Comment(s): Another brother had lung cancer. Medications and Allergies Home Medications Medication Instructions Recorded Confirmed Type Hydrocodone/Acetaminophen [[place] 1 tab PO Q6HR PRN 11/20/17 03/18/24 History 7.5-325] Cyclobenzaprine [Flexeril] 10 mg PO HS 03/11/19 03/18/24 History ALPRAZolam [Xanax] 0.5 mg PO DAILY PRN 06/15/20 03/18/24 History Ezetimibe [Zetia] 10 mg PO DAILY 01/17/24 03/18/24 History Metoprolol Succinate (ER) [Toprol 12.5 mg PO DAILY 01/17/24 03/18/24 History Xl] Omeprazole 20 mg PO DAILY PRN 01/17/24 03/18/24 History Allergies Allergy/AdvReac Type Severity Reaction Status Date / Time shellfish derived [Shellfish] Allergy Swelling Verified 03/18/24 09:12 Exam Vital Signs Temp Pulse Resp BP Pulse Ox 03/18/24 09:22 98.5 F 75 16 144/84 97 Intake and Output 03/17/24 03/18/24 03/18/24 22:59 06:59 14:59 Other: Weight 62.142 kg Height 4 feet 8-1/2 inches, weight 137 pounds, BMI 30.7. This is a short statured, well-nourished white female who is alert and oriented times 3 in no acute distress. HEENT: The patient has dressing over an area just left of the nose where she had precancerous skin changes removed recently. HEENT is otherwise within normal limits. NECK: Supple without mass or thyromegaly. CHEST AND LUNGS: Clear to auscultation. HEART: Regular rate and rhythm. BREASTS: Are without mass or discharge. AXILLARY EXAM: Negative for adenopathy. BACK: Negative for CVA tenderness. ABDOMEN: Soft, nontender, without palpable masses. PELVIC EXAM: Normal external genitalia with mild atrophy. Cervix and vagina appear normal with mild atrophy. There is no unusual discharge. There is no evidence of prolapse. The uterus is midposition, nongravid size and nontender. There are no palpable adnexal masses or tenderness. RECTAL EXAM: Rectovaginal exam is negative for mass or tenderness and is negative for occult blood. EXTREMITIES: Nontender. IMPRESSION: 1. 64-year-old menopausal female with normal gynecologic exam. PLAN: 1. Pap smear was deferred since she had a negative Pap smear cotest on 06/15/2020. 2. Self breast awareness was discussed with the patient. We have also discussed symptoms associated with inflammatory breast cancer. 3. Screening mammogram will be done today. 4. Osteoporosis prevention was discussed. Will plan on repeating the bone density test in approximately 2025. 5. She was advised to return in one year for her annual well woman exam.
--- NOTE | 2024-03-19 12:17 | MM ---
Reason for Exam: Screening (asymptomatic). Last mammogram was performed 1 year(s) and 4 month(s) ago. Patient History: Menarche at age 14. First Full-Term at age 18. Postmenopausal. Patient used Hormonal Contraceptives for 10 years. 08/13/2006, Benign Excisional Biopsy on the right side. Risk Values: Geovanna 5 year model risk: 1.3%. NCI Lifetime model risk: 5.1%. Prior Study Comparison: 09/20/2021 Bilateral Screening Mammogram, [facility]. 09/22/2021 Left Diagnostic Mammogram, [facility]. 11/14/2022 Bilateral MG 3D screening mammo w/cad, [facility]. Tissue Density: The breasts are heterogeneously dense, which may obscure small masses. Findings: Analyzed By CAD. Unchanged bilateral areas of asymmetric density. Redemonstrated scattered benign round calcifications on both sides. There is no suspicious group of microcalcifications or new suspicious mass in either breast. Overall Assessment: Benign, BI-RAD 2 Management: Screening Mammogram of both breasts in 1 year. Given the patient's dense tissues, supplementary screening with breast ultrasound can be considered. Patient should continue monthly self-breast exams. A clinical breast exam by your physician is recommended on an annual basis. This exam should not preclude additional follow-up of suspicious palpable abnormalities. Note on Geovanna scores and lifetime risk: 1. A Geovanna score greater than 3% is considered moderate risk. If this is the case, consider specialist referral to assess eligibility for a risk reducing agent. 2. If overall lifetime risk for the development of breast cancer is 20% or higher, the patient may qualify for future screening with alternating mammogram and breast MRI. [facility], , 03/19/2024 12:13 PM. Electronically signed and approved by: Susanne Reyna M.D. Radiologist
== END ==
LOC: WWCWWP 08:55
PROVIDERS: ATTEND Obstetrics & Gynecology
CPT/HCPCS: 77063; 77067